=== PATIENT | male | born 1955 | race Caucasian/White ===

== ENCOUNTER 2016-03-31 12:59 | Emergency (ER) | payer OTHER ==
[2016-03-31 13:05] VITALS: BP 120/82; PULSE 84; TEMP 98; BMI 27.4
[2016-03-31] MEDS ORDERED: KETOROLAC TROMETHAMINE 60 MG/2 ML VIAL IM ONE (13:44)
[2016-03-31] MEDS ORDERED: KETOROLAC TROMETHAMINE 60 MG/2 ML VIAL ONE (13:54)
[2016-03-31 14:22] LABS: URINE APPEARANCE CLEAR; URINE BILIRUBIN NEGATIVE (NEGATIVE); URINE BLOOD NEGATIVE (NEGATIVE); URINE COLOR AMBER; URINE GLUCOSE (UA) NEGATIVE (NEGATIVE); URINE KETONE TRACE (NEGATIVE); URINE LEUK ESTERASE NEGATIVE (NEGATIVE); URINE NITRITE NEGATIVE (NEGATIVE); URINE PROTEIN 1+ (NEGATIVE); URINE UROBILINOGEN 4.0 E.U/dl E.U./dl (0.2-1.0)
[2016-03-31 14:29] LABS: URINE HYALINE CAST 1 /lpf; URINE MUCUS FEW; URINE RBC 1 /hpf (0-3); URINE WBC 14 /hpf (3-5)
--- NOTE | 2016-03-31 14:43 | PDOC ---
History of Present Illness - General Chief Complaint: Injury Stated Complaint: FALL, RT SIDE PAIN Time Seen by Provider: 03/31/16 13:30 History Source: Patient Exam Limitations: No Limitations - History of Present Illness Initial Comments: 03/31/16 14:38 CC pain to right ribs post fall x 4 days ago Occurred: reports: last week Severity: reports: mild Pain Location: reports: none Method of Injury: Yes: direct blow Modifying Factors: improves with: None Loss of Consciousness: no loss of consciousness Past History - Past Medical History Allergies/Adverse Reactions: Allergies Allergy/AdvReac Type Severity Reaction Status Date / Time No Known Allergies Allergy Verified 03/31/16 13:01 Home Medications: Ambulatory Orders NK [No Known Home Medication] 03/31/16 Other medical history: NONE - Psycho/Social/Smoking Cessation Hx Anxiety: No Suicidal Ideation: No Smoking History: Never smoked Have you smoked in the past 12 months: Yes Number of Cigarettes Smoked Daily: 2 Information on smoking cessation initiated: Yes Hx Alcohol Use: No Drug/Substance Use Hx: No Substance Use Type: None Review of Systems - Review of Systems Constitutional: No: Chills, Fever, Malaise HEENTM: No: Symptoms Reported Respiratory: Yes: Other. No: Symptoms reported, Cough, Shortness of Breath, SOB with Exertion, Productive cough, Hemoptysis Cardiac (ROS): No: Symptoms Reported Musculoskeletal: Yes: Back Pain, Muscle Pain Integumentary: Yes: Bruising Neurological: No: Symptoms reported *Physical Exam - Vital Signs Last Vital Signs Temp Pulse Resp BP Pulse Ox 98.0 F 84 18 120/82 100 03/31/16 13:02 03/31/16 13:02 03/31/16 13:02 03/31/16 13:02 03/31/16 13:02 - Physical Exam General Appearance: Yes: Appropriately Dressed. No: Apparent Distress HEENT: positive: TMs Normal, Pharynx Normal Neck: positive: Supple. negative: Tender, Rigid Respiratory/Chest: positive: Chest Tender, Lungs Clear, Normal Breath Sounds, Other (some guarding noted; bruising area lateral posterior #8,9). negative: Respiratory Distress, Accessory Muscle Use, Labored Respiration Cardiovascular: positive: Regular Rhythm, Regular Rate. negative: Murmur Gastrointestinal/Abdominal: positive: Normal Bowel Sounds, Soft. negative: Tender, Organomegaly ED Treatment Course - ADDITIONAL ORDERS Additional order review: Laboratory Results 03/31/16 14:00 Urine Color Rohini Urine Appearance Clear Urine pH 5.0 Ur Specific [place] 1.028 Urine Protein 1+ H Urine Glucose (UA) Negative Urine Ketones Trace H Urine Blood Negative Urine Nitrite Negative Urine Bilirubin Negative Urine Urobilinogen 4.0 e.u/dl Ur Leukocyte Esterase Negative Urine RBC 1 Urine WBC 14 Ur Epithelial Cells Rare Hyaline Casts 1 Urine Mucus Few - RADIOLOGY Radiology Studies Ordered: Category Date Time Status RIBS RIGHT SIDE [RAD] Stat Radiology 03/31/16 13:44 Completed - Medications Given in the ED: ED Medications Discontinued Medications Generic Name Dose Route Start Last Admin Trade Name Freq PRN Reason Stop Dose Admin Ketorolac Tromethamine 60 mg 03/31/16 13:44 03/31/16 14:03 Toradol Injection - IM 03/31/16 13:45 60 mg ONCE ONE Administration Medical Decision Making - Medical Decision Making 03/31/16 14:42 no fractures noted; no blood in urine; better post toradol *DC/Admit/Observation/Transfer Diagnosis at time of Disposition: Contusion of rib on right side Qualifiers: Encounter type: initial encounter Qualified Code(s): S20.211A - Contusion of right front wall of thorax, initial encounter - Discharge Dispostion Disposition: HOME Condition at time of disposition: Stable - Patient Instructions Additional Instructions: please see local MD next week if pain continues; advil for pain
== END 2016-03-31 14:47 | disposition home or self-care (01) ==
LOC: JERFT 12:59
DX: S20.211A Contusion of right front wall of thorax, initial encounter (principal); W19.XXXA Unspecified fall, initial encounter; Y93.89 Activity, other specified; Y92.9 Unspecified place or not applicable; Y99.8 Other external cause status
CPT/HCPCS: 71101-TC-RT; 81003; 81015; 99281-25

== ENCOUNTER 2019-03-21 12:41 | Inpatient (IN) | payer OTHER ==
[2019-03-21 13:59] VITALS: BMI 25.5
--- NOTE | 2019-03-21 16:16 | HP ---
CIWA Score Nausea/Vomitin-Mild Nausea/No Vomiting Muscle Tremors: 4-Moderate,w/Arms Extend Anxiety: 4-Mod. Anxious/Guarded Agitation: 4-Moderately Restless Paroxysmal Sweats: 1-Minimal Palms Moist Orientation: 0-Oriented Tacttile Disturbances: 0-None Auditory Disturbances: 0-None Visual Disturbances: 0-None Headache: 0-None Present CIWA-Ar Total Score: 14 - Admission Criteria OASAS Guidelines: Admission for Medically Managed Detox: Requires at least one of the followin. CIWA greater than 12 2. Seizures within the past 24 hours 3. Delirium tremens within the past 24 hours 4. Hallucinations within the past 24 hours 5. Acute intervention needed for co occurring medical disorder 6. Acute intervention needed for co occurring psychiatric disorder 7. Severe withdrawal that cannot be handled at a lower level of care (continued vomiting, continued diarrhea, abnormal vital signs) requiring intravenous medication and/or fluids 8. Admitting History and Physical - Admission Chief Complaint: "I need help" History of Present Illness: The patient is a 63 yo m w/ PMH HTN, HLD, Major depressive disorder, BPH who comes into [facility] for assistance with detoxification from alcohol. The patient endorses drinking 2-3 beers daily since he was 20. His last drink was yesterday. He denies blackouts or seizures from EOTH withdrawal in the past. The patient endorses sniffing 1 bag of cocaine daily since he was 32. His last use was 2 days ago. The patient is a current everyday smoker, smoking 7 cigarettes daily. PMH -HTN- Patient was previously on medication for this, but cannot recall the name. He has not taken these medications in the last 3 weeks -MDD- Patient was previously on medication for this, but cannot recall the name. He has not taken these medications in the last 3 weeks -BPH- Patient was previously on medication for this, but cannot recall the name. He has not taken these medications in the last 3 weeks History Source: Patient Limitations to Obtaining History: No Limitations - Past Medical History Cardiovascular: Yes: HTN, Hyperlipdemia Renal/: Yes: BPH - Past Surgical History Past Surgical History: Yes: None - Smoking History Smoking history: Never smoked Have you smoked in the past 12 months: Yes Aproximately how many cigarettes per day: 7 - Alcohol/Substance Use Hx Alcohol Use: No - Social History Usual Living Arrangement: Yes: Other (homeless) Admission ROS S - HPI Allergies/Adverse Reactions: Allergies Allergy/AdvReac Type Severity Reaction Status Date / Time No Known Allergies Allergy Verified 01/18/19 09:34 Exam Limitations: No Limitations - Ebola screening Have you traveled outside of the country in the last 21 days: No Have you had contact with anyone from an Ebola affected area: No Do you have a fever: No - Review of Systems Constitutional: Loss of Appetite EENT: reports: No Symptoms Reported Respiratory: reports: No Symptoms reported Cardiac: reports: No Symptoms Reported Neuro: reports: Tremors Psychiatric: reports: Judgement Intact, Mood/Affect Appropiate, Orientated x3 Patient History - Smoking Cessation Smoking history: Never smoked Have you smoked in the past 12 months: Yes Aproximately how many cigarettes per day: 2 Initiated information on smoking cessation: Yes 'Breaking Loose' booklet given: 03/21/19 - Substances abused Alcohol Substance route: Oral Frequency: Daily Amount used: 2-3 BEERS DAILY-16OZ Age of first use: 20 Date of last use: 03/20/19 Cocaine Substance route: Inhalation Frequency: Daily Amount used: 1 bag Age of first use: 32 Date of last use: 03/19/19 Admission Physical Exam S - Vital Signs Vital Signs: Vital Signs - 24 hr 03/21/19 13:54 Temperature 97.5 F L Pulse Rate 68 Respiratory 18 Rate Blood Pressure 143/78 - Physical General Appearance: Yes: Mild Distress, Irritable, Anxious HEENTM: Yes: EOMI, Normal ENT Inspection, KAVITA Respiratory: Yes: Chest Non-Tender, Lungs Clear, Normal Breath Sounds, No Respiratory Distress, No Accessory Muscle Use Cardiology: Yes: Regular Rhythm, Regular Rate, S1, S2. No: JVD, Murmur, Gallop/ S3, Gallop/S4 Abdominal: Yes: Normal Bowel Sounds, Non Tender, Flat, Soft Neurological: Yes: corrugator helper II-XII NML intact, Fully Oriented, Alert, Motor Strength 5/5, Normal Response, Depressed Affect Integumentary: Yes: Normal Color, Dry, Warm, Rash (maculopapular rash over both arms and chest.) - Diagnostic (1) Alcohol dependence Current Visit: Yes Status: Acute (2) Cocaine abuse Current Visit: Yes Status: Acute (3) Tobacco dependence Current Visit: Yes Status: Acute (4) Hypertension Current Visit: Yes Status: Acute (5) BPH (benign prostatic hyperplasia) Current Visit: Yes Status: Acute (6) Major depression Current Visit: Yes Status: Acute (7) Hyperlipidemia Current Visit: Yes Status: Acute Cleared for Admission [facility] - Detox or Rehab [facility] Level of Care: Medically Managed Detox Regimen/Protocol: Librium Breathalyzer - Breathalyzer Breathalyzer: 0 Urine Drug Screen - Test Device Lot number: [id number] Expiration date: 12/13/20 - Control Is test valid?: Yes - Results Drug screen NEGATIVE: No Urine drug screen results: TAMEKA-Cocaine Inpatient Rehab Admission - Rehab Decision to Admit Inpatient rehab admission?: No
--- NOTE | 2019-03-21 16:25 | PN ---
Teaching Attending Note Name of Resident: Guru Zhou ATTENDING PHYSICIAN STATEMENT I saw and evaluated the patient. I reviewed the resident's note and discussed the case with the resident. I agree with the resident's findings and plan as documented. SUBJECTIVE: 63 yo with long h/o AUD- tremulous/and anxious last drink yesterday. OBJECTIVE: Vital Signs - 24 hr 03/21/19 13:54 Temperature 97.5 F L Pulse Rate 68 Respiratory 18 Rate Blood Pressure 143/78 tremulous, anxious ASSESSMENT AND PLAN: AUD- admit for alcohol detox protocol
[2019-03-21] MEDS ORDERED: MENTHOL/PHENOL 1 EACH UD MM PRN (16:38)
[2019-03-21] MEDS ORDERED: hydrOXYzine PAMOATE 25 MG CAPSULE (FP) PO PRN (16:38)
[2019-03-21] MEDS ORDERED: METHOCARBAMOL 500 MG TABLET PO PRN (16:38)
[2019-03-21] MEDS ORDERED: MAGNESIUM HYDROX 2400MG/30ML ORAL SUSPENSION 30 ML CUP PO PRN (16:38)
[2019-03-21] MEDS ORDERED: ACETAMINOPHEN 325 MG TABLET (FP) PO PRN ×2 (16:38)
[2019-03-21] MEDS ORDERED: BISMUTH SUBSALICYLATE 524 MG/30 ML UD PO PRN (16:38)
[2019-03-21] MEDS ORDERED: MAGNESIUM CITRATE 300 ML BOTTLE PO PRN (16:38)
[2019-03-21] MEDS ORDERED: chlordiazePOXIDE HCL 25 MG CAPSULE PO PRN (16:38)
[2019-03-21] MEDS ORDERED: IBUPROFEN 400 MG TABLET (FP) PO PRN (16:38)
[2019-03-21] MEDS ORDERED: MAG HYDROX/AL HYDROX/SIMETH 30 ML UNIT-DOSE CUP PO PRN (16:38)
[2019-03-21] MEDS: chlordiazePOXIDE HCL 25 MG CAPSULE PO SCH ×2 (19:12→22:19)
[2019-03-21] MEDS: THIAMINE HCL 100 MG TABLET (FP) PO SCH (22:19)
[2019-03-22] MEDS: chlordiazePOXIDE HCL 25 MG CAPSULE PO SCH ×4 (06:02→22:08)
--- NOTE | 2019-03-22 09:25 | PN ---
S CIWA - CIWA Score Nausea/Vomitin-Mild Nausea/No Vomiting Muscle Tremors: 3 Anxiety: 3 Agitation: 2 Paroxysmal Sweats: 2 Orientation: 1-Uncertain about Date Tacttile Disturbances: 0-None Auditory Disturbances: 0-None Visual Disturbances: 0-None Headache: 0-None Present CIWA-Ar Total Score: 12 S Progress Note (SOAP) Subjective: 63 years old male admitted on 03/21/19 for alcohol withdrawal sx management treating with librium detox regimen ate breakfast feeling tired resting in bed discussed behavior therapy and psychosocial therapy as part of recovery Objective: 03/22/19 09:26 Vital Signs Temperature 98.2 F 03/22/19 09:03 Pulse Rate 61 03/22/19 09:03 Respiratory Rate 18 03/22/19 09:03 Blood Pressure 141/76 03/22/19 09:03 O2 Sat by Pulse Oximetry (%) 03/22/19 09:27 lab pending 03/22/19 09:28 bp elevation when detoxing fro alcohol clonidine 0.1 mg po prn Assessment: 03/22/19 09:29 alcohol withdrawal Plan: librium regimen
[2019-03-22] MEDS ORDERED: cloNIDine HCL 0.1 MG TABLET PO PRN (09:27)
[2019-03-22 09:44] LABS: HEMATOCRIT 40.8 % (35.4-49); HEMOGLOBIN 13.7 GM/dL (11.7-16.9); MCH 31.7 pg (25.7-33.7); MCHC 33.7 g/dl (32.0-35.9); MEAN CELL VOLUME 93.9 fl (80-96); MEAN PLT VOLUME 8.9 fl (7.5-11.1); PLATELET COUNT 227 K/MM3 (134-434); RBC 4.34 M/mm3 (4.00-5.60); RDW 13.7 % (11.9-15.9); WHITE BLOOD COUNT 5.1 K/mm3 (4.0-10.0)
[2019-03-22] MEDS: PRENATAL VITAMINS W/ FOLIC ACID TABLET (FP) PO SCH (10:18)
[2019-03-22] MEDS: NICOTINE 14 MG/24 HOURS TOPICAL PATCH TD SCH (10:19)
[2019-03-22 11:07] LABS: ALBUMIN 3.1 g/dl (3.4-5.0); BILIRUBIN,TOTAL 0.2 mg/dL (0.2-1); BLOOD UREA NITROGEN 17.6 mg/dL (7-18); CALCIUM 8.4 mg/dL (8.5-10.1); POTASSIUM 3.7 mmol/L (3.5-5.1); TOT PROT 6.2 g/dl (6.4-8.2)
--- NOTE | 2019-03-22 12:48 | CONSULT ---
[facility] Psychiatric Consult - Data Date of interview: 03/22/19 Admission source: [facility] Identifying data: First visit and admission to [facility] for this 63 y/o male self-referred for detoxification treatment. [place] issues : alcohol, cocaine. Patient is , a father of five, homeless, unemployed and supported on food stamps. Substance Abuse History: Discussed with the patient in this session. Details are concordant with current [facility] report as follows : Smoking history: Never smoked. Have you smoked in the past 12 months: Yes. Aproximately how many cigarettes per day: 2. Initiated information on smoking cessation: Yes. ' Breaking Loose' booklet given: 03/21/19. - Substances abused. Alcohol. Substance route: Oral. Frequency: Daily. Amount used: 2-3 BEERS DAILY-16OZ. Age of first use: 20. Date of last use: 03/20/19. Cocaine. Substance route : Inhalation. Frequency: Daily. Amount used: 1 bag. Age of first use: 32. Date of last use: 03/19/19 Medical History: Medical profile is remarkable for hypertension, dyslipidemia and benign prostatic hyperplasia (BPH). No known allergies. Psychiatric History: Patient denies history of psychiatric hospitalizations. Mr Sly states that he used to be on medications for depression. No current connection with psychiatric OPD care providers. Patient has no recollection of the names of his previous medications or locations of OPD clinics. Has not taken psychotropic medications " for a while ". Patient denies history of suicide attempts. Physical/Sexual Abuse/Trauma History: Patient denies. Additional Comment: Urine drug screen results: TAMEKA-Cocaine. Noted. Mental Status Exam - Mental Status Exam Alert and Oriented to: Time, Place, Person Cognitive Function: Grossly Intact Patient Appearance: Unkempt, Disheveled Mood: Nervous, Withdrawn Affect: Mood Congruent, Constricted Patient Behavior: Fatigued, Cooperative Speech Pattern: Clear, Appropriate Voice Loudness: Normal Thought Process: Goal Oriented Thought Disorder: Not Present Hallucinations: Denies Suicidal Ideation: Denies Homicidal Ideation: Denies Insight/Judgement: Poor Sleep: Well Appetite: Good Gait/Station: Other (not observed; not out of bed for interview) Psychiatric Findings - Problem List ([place] 1, 2,3) (1) Alcohol dependence Current Visit: Yes Status: Chronic (2) Cocaine abuse Current Visit: Yes Status: Chronic (3) Nicotine abuse Current Visit: Yes Status: Chronic (4) History of depression Current Visit: Yes Status: Chronic Comment: Non-compliant with OPD care. - Initial Treatment Plan Initial Treatment Plan: Psychoeducation. Sleep hygiene. Detoxification. Support. AA meetings. MAT services offered to patient : responded with ambivalence. Observation.
[2019-03-22] MEDS: THIAMINE HCL 100 MG TABLET (FP) PO SCH (22:08)
[2019-03-22] MEDS: MELATONIN 5 MG TABLETS PO PRN (22:10)
[2019-03-23] MEDS: chlordiazePOXIDE HCL 25 MG CAPSULE PO SCH ×4 (06:24→22:37)
--- NOTE | 2019-03-23 09:15 | PN ---
[facility] CIWA - CIWA Score Nausea/Vomitin-Mild Nausea/No Vomiting Muscle Tremors: 3 Anxiety: 3 Agitation: 1-Slight > Activity Paroxysmal Sweats: 2 Orientation: 0-Oriented Tacttile Disturbances: 0-None Auditory Disturbances: 0-None Visual Disturbances: 0-None Headache: 0-None Present CIWA-Ar Total Score: 10 S Progress Note (SOAP) Subjective: 63 years old male admitted on 03/21/19 for alcohol withdrawal sx management treating with librium detox regimen feeling tired prefers to stay in bed encourage to attend detox groups and meeting as part of recovery Objective: 03/23/19 09:14 Vital Signs Temperature 98.2 F 03/23/19 09:07 Pulse Rate 69 03/23/19 09:07 Respiratory Rate 18 03/23/19 09:07 Blood Pressure 141/84 03/23/19 09:07 O2 Sat by Pulse Oximetry (%) Laboratory Last Values WBC 5.1 K/mm3 (4.0-10.0) 03/22/19 08:00 RBC 4.34 M/mm3 (4.00-5.60) 03/22/19 08:00 Hgb 13.7 GM/dL (11.7-16.9) 03/22/19 08:00 Hct 40.8 % (35.4-49) 03/22/19 08:00 MCV 93.9 fl (80-96) 03/22/19 08:00 MCH 31.7 pg (25.7-33.7) 03/22/19 08:00 MCHC 33.7 g/dl (32.0-35.9) 03/22/19 08:00 RDW 13.7 % (11.9-15.9) 03/22/19 08:00 Plt Count 227 K/MM3 (134-434) 03/22/19 08:00 MPV 8.9 fl (7.5-11.1) 03/22/19 08:00 Sodium 144 mmol/L (136-145) 03/22/19 08:00 Potassium 3.7 mmol/L (3.5-5.1) 03/22/19 08:00 Chloride 111 mmol/L (98-107) H 03/22/19 08:00 Carbon Dioxide 26 mmol/L (21-32) 03/22/19 08:00 Anion Gap 7 MMOL/L (8-16) L 03/22/19 08:00 BUN 17.6 mg/dL (7-18) 03/22/19 08:00 Creatinine 1.0 mg/dL (0.55-1.3) 03/22/19 08:00 Est GFR (CKD-EPI)AfAm 93.73 03/22/19 08:00 Est GFR (CKD-EPI)NonAf 80.87 03/22/19 08:00 Random Glucose 95 mg/dL (74-106) 03/22/19 08:00 Calcium 8.4 mg/dL (8.5-10.1) L 03/22/19 08:00 Total Bilirubin 0.2 mg/dL (0.2-1) 03/22/19 08:00 AST 11 U/L (15-37) L 03/22/19 08:00 ALT 15 U/L (13-61) 03/22/19 08:00 Alkaline Phosphatase 71 U/L (45-117) 03/22/19 08:00 Total Protein 6.2 g/dl (6.4-8.2) L 03/22/19 08:00 Albumin 3.1 g/dl (3.4-5.0) L 03/22/19 08:00 RPR Titer Nonreactive (NONREACTIVE) 03/22/19 08:00 lab noted Assessment: 03/23/19 09:15 alcohol withdrawal Plan: librium regimen
[2019-03-23] MEDS: PRENATAL VITAMINS W/ FOLIC ACID TABLET (FP) PO SCH (10:12)
[2019-03-23] MEDS: NICOTINE 14 MG/24 HOURS TOPICAL PATCH TD SCH (10:12)
[2019-03-23] MEDS: THIAMINE HCL 100 MG TABLET (FP) PO SCH (22:37)
[2019-03-23] MEDS: MELATONIN 5 MG TABLETS PO PRN (22:37)
[2019-03-24] MEDS ORDERED: chlordiazePOXIDE HCL 10 MG CAPSULE PO PRN
[2019-03-24] MEDS: chlordiazePOXIDE HCL 10 MG CAPSULE PO SCH ×4 (05:51→22:16)
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
--- NOTE | 2019-03-24 09:58 | PN ---
S CIWA - CIWA Score Nausea/Vomitin-No Nausea/No Vomiting Muscle Tremors: 1-None Visible, but [place] Anxiety: 2 Agitation: 1-Slight > Activity Paroxysmal Sweats: 1-Minimal Palms Moist Orientation: 0-Oriented Tacttile Disturbances: 0-None Auditory Disturbances: 0-None Visual Disturbances: 0-None Headache: 0-None Present CIWA-Ar Total Score: 5 [facility] Progress Note (SOAP) Subjective: 63 years old male admitted on 03/21/19 for alcohol withdrawal sx management treating with librium detox regimen reports self harm ideation and harm others states that history of self harm last self harm ideation was "yesterday" patient is pointing out old healed scars vertical both inner fore arms and based of neck psychiatric referral and 1:1 initiated met with the patient and mental health provider patient denies self harm or harm others ideation but "I want to get better" discontinue 1:1 continue behavior change observation Objective: 03/24/19 09:58 Vital Signs Temperature 96.3 F L 03/24/19 09:22 Pulse Rate 80 03/24/19 09:22 Respiratory Rate 18 03/24/19 09:22 Blood Pressure 128/85 03/24/19 09:22 O2 Sat by Pulse Oximetry (%) Laboratory Last Values WBC 5.1 K/mm3 (4.0-10.0) 03/22/19 08:00 RBC 4.34 M/mm3 (4.00-5.60) 03/22/19 08:00 Hgb 13.7 GM/dL (11.7-16.9) 03/22/19 08:00 Hct 40.8 % (35.4-49) 03/22/19 08:00 MCV 93.9 fl (80-96) 03/22/19 08:00 MCH 31.7 pg (25.7-33.7) 03/22/19 08:00 MCHC 33.7 g/dl (32.0-35.9) 03/22/19 08:00 RDW 13.7 % (11.9-15.9) 03/22/19 08:00 Plt Count 227 K/MM3 (134-434) 03/22/19 08:00 MPV 8.9 fl (7.5-11.1) 03/22/19 08:00 Sodium 144 mmol/L (136-145) 03/22/19 08:00 Potassium 3.7 mmol/L (3.5-5.1) 03/22/19 08:00 Chloride 111 mmol/L (98-107) H 03/22/19 08:00 Carbon Dioxide 26 mmol/L (21-32) 03/22/19 08:00 Anion Gap 7 MMOL/L (8-16) L 03/22/19 08:00 BUN 17.6 mg/dL (7-18) 03/22/19 08:00 Creatinine 1.0 mg/dL (0.55-1.3) 03/22/19 08:00 Est GFR (CKD-EPI)AfAm 93.73 03/22/19 08:00 Est GFR (CKD-EPI)NonAf 80.87 03/22/19 08:00 Random Glucose 95 mg/dL (74-106) 03/22/19 08:00 Calcium 8.4 mg/dL (8.5-10.1) L 03/22/19 08:00 Total Bilirubin 0.2 mg/dL (0.2-1) 03/22/19 08:00 AST 11 U/L (15-37) L 03/22/19 08:00 ALT 15 U/L (13-61) 03/22/19 08:00 Alkaline Phosphatase 71 U/L (45-117) 03/22/19 08:00 Total Protein 6.2 g/dl (6.4-8.2) L 03/22/19 08:00 Albumin 3.1 g/dl (3.4-5.0) L 03/22/19 08:00 RPR Titer Nonreactive (NONREACTIVE) 03/22/19 08:00 lab noted Assessment: 03/24/19 09:58 alcohol withdrawal Plan: librium regimen
[2019-03-24] MEDS: PRENATAL VITAMINS W/ FOLIC ACID TABLET (FP) PO SCH (10:12)
[2019-03-24] MEDS: NICOTINE 14 MG/24 HOURS TOPICAL PATCH TD SCH (10:13)
[2019-03-24] MEDS: THIAMINE HCL 100 MG TABLET (FP) PO SCH (22:16)
[2019-03-24] MEDS: MELATONIN 5 MG TABLETS PO PRN (22:17)
[2019-03-25] MEDS: chlordiazePOXIDE HCL 10 MG CAPSULE PO SCH ×2 (07:49→17:32)
--- NOTE | 2019-03-25 10:02 | PN ---
[facility] CIWA - CIWA Score Nausea/Vomitin-Mild Nausea/No Vomiting Muscle Tremors: 2 Anxiety: 1-Mildly Anxious Agitation: 1-Slight > Activity Paroxysmal Sweats: No Perspiration Orientation: 0-Oriented Tacttile Disturbances: 0-None Auditory Disturbances: 0-None Visual Disturbances: 0-None Headache: 1-Very Mild CIWA-Ar Total Score: 6 [facility] Progress Note (SOAP) Subjective: pt here for alcohol and cocaine detox. Pt states feeling fine O: Vital Signs - 24 hr 03/24/19 03/24/19 03/24/19 13:14 17:45 22:32 Temperature 96.8 F L 97 F L 9714 F H Pulse Rate 73 86 84 Respiratory 18 18 18 Rate Blood Pressure 135/82 126/77 130/84 03/25/19 03/25/19 03/25/19 00:25 03:30 05:49 Temperature 97.6 F Pulse Rate 61 Respiratory 18 18 18 Rate Blood Pressure 108/62 03/25/19 09:11 Temperature 98.3 F Pulse Rate 68 Respiratory 18 Rate Blood Pressure 119/69 Laboratory Tests 03/22/19 03/22/19 03/22/19 08:00 08:00 08:00 WBC 5.1 RBC 4.34 Hgb 13.7 Hct 40.8 MCV 93.9 MCH 31.7 MCHC 33.7 RDW 13.7 Plt Count 227 MPV 8.9 Sodium 144 Potassium 3.7 Chloride 111 H Carbon Dioxide 26 Anion Gap 7 L BUN 17.6 Creatinine 1.0 Est GFR (CKD-EPI)AfAm 93.73 Est GFR (CKD-EPI)NonAf 80.87 Random Glucose 95 Calcium 8.4 L Total Bilirubin 0.2 AST 11 L ALT 15 Alkaline Phosphatase 71 Total Protein 6.2 L Albumin 3.1 L RPR Titer Nonreactive Hep C Ab Diagnostic HIV 1&2 Ag/Ab, 4th Gen 03/23/19 03/23/19 08:00 08:00 WBC RBC Hgb Hct MCV MCH MCHC RDW Plt Count MPV Sodium Potassium Chloride Carbon Dioxide Anion Gap BUN Creatinine Est GFR (CKD-EPI)AfAm Est GFR (CKD-EPI)NonAf Random Glucose Calcium Total Bilirubin AST ALT Alkaline Phosphatase Total Protein Albumin RPR Titer Hep C Ab Diagnostic 0.2 HIV 1&2 Ag/Ab, 4th Gen Non reactive nl VS and labs a/p AUD- continue detox protocol
[2019-03-25] MEDS: PRENATAL VITAMINS W/ FOLIC ACID TABLET (FP) PO SCH (10:16)
[2019-03-25] MEDS: NICOTINE 14 MG/24 HOURS TOPICAL PATCH TD SCH (10:16)
[2019-03-25] MEDS: MELATONIN 5 MG TABLETS PO PRN (22:15)
[2019-03-25] MEDS: THIAMINE HCL 100 MG TABLET (FP) PO SCH (22:15)
[2019-03-26] MEDS ORDERED: chlordiazePOXIDE HCL 10 MG CAPSULE PO ONE (05:00)
[2019-03-26 09:50] VITALS: BP 102/82; PULSE 72; TEMP 98.7
[2019-03-26] MEDS: NICOTINE 14 MG/24 HOURS TOPICAL PATCH TD SCH (10:32)
[2019-03-26] MEDS: PRENATAL VITAMINS W/ FOLIC ACID TABLET (FP) PO SCH (10:32)
--- NOTE | 2019-03-26 12:33 | DS ---
[facility] Detox Discharge Summary Admission Date: 03/21/19 Discharge Date: 03/26/19 - History Present History: Alcohol Dependence, Cocaine Dependence Additional Comments: Pt is medically cleared and [facility]. Pt completed the detox protocol. Pt is encouraged to follow through with the rehab protocol. Pt verabalized understanding. Pt is alert and oriented x3 and in no respiratory distress. Pertinent Past History: h/o HTN, HLD, BPH, alcohol, and cocaine use disorder. - Physical Exam Results Vital Signs: Vital Signs Temperature 98.7 F 03/26/19 09:25 Pulse Rate 72 03/26/19 09:25 Respiratory Rate 18 03/26/19 09:25 Blood Pressure 102/82 03/26/19 09:25 O2 Sat by Pulse Oximetry (%) Vital Signs 03/26/19 03/26/19 06:36 09:25 Temperature 97.0 F L 98.7 F Pulse Rate 76 72 Respiratory 18 18 Rate Blood Pressure 111/62 102/82 Laboratory Last Values WBC 5.1 K/mm3 (4.0-10.0) 03/22/19 08:00 RBC 4.34 M/mm3 (4.00-5.60) 03/22/19 08:00 Hgb 13.7 GM/dL (11.7-16.9) 03/22/19 08:00 Hct 40.8 % (35.4-49) 03/22/19 08:00 MCV 93.9 fl (80-96) 03/22/19 08:00 MCH 31.7 pg (25.7-33.7) 03/22/19 08:00 MCHC 33.7 g/dl (32.0-35.9) 03/22/19 08:00 RDW 13.7 % (11.9-15.9) 03/22/19 08:00 Plt Count 227 K/MM3 (134-434) 03/22/19 08:00 MPV 8.9 fl (7.5-11.1) 03/22/19 08:00 Sodium 144 mmol/L (136-145) 03/22/19 08:00 Potassium 3.7 mmol/L (3.5-5.1) 03/22/19 08:00 Chloride 111 mmol/L (98-107) H 03/22/19 08:00 Carbon Dioxide 26 mmol/L (21-32) 03/22/19 08:00 Anion Gap 7 MMOL/L (8-16) L 03/22/19 08:00 BUN 17.6 mg/dL (7-18) 03/22/19 08:00 Creatinine 1.0 mg/dL (0.55-1.3) 03/22/19 08:00 Est GFR (CKD-EPI)AfAm 93.73 03/22/19 08:00 Est GFR (CKD-EPI)NonAf 80.87 03/22/19 08:00 Random Glucose 95 mg/dL (74-106) 03/22/19 08:00 Calcium 8.4 mg/dL (8.5-10.1) L 03/22/19 08:00 Total Bilirubin 0.2 mg/dL (0.2-1) 03/22/19 08:00 AST 11 U/L (15-37) L 03/22/19 08:00 ALT 15 U/L (13-61) 03/22/19 08:00 Alkaline Phosphatase 71 U/L (45-117) 03/22/19 08:00 Total Protein 6.2 g/dl (6.4-8.2) L 03/22/19 08:00 Albumin 3.1 g/dl (3.4-5.0) L 03/22/19 08:00 RPR Titer Nonreactive (NONREACTIVE) 03/22/19 08:00 Hep C Ab Diagnostic 0.2 s/co ratio (0.0-0.9) 03/23/19 08:00 HIV 1&2 Ag/Ab, 4th Gen Non reactive (Non Reactive) 03/23/19 08:00 Labs noted. Pertinent Admission Physical Exam Findings: withdrawal symptoms. - Treatment Hospital Course: Detox Protocol Followed, Detoxed Safely, Responded well, Discharged Condition Good, Rehab Referral Accepted Patient has Accepted a Rehab Referral to: [facility] - Medication Discharge Medications: Ambulatory Orders NK [No Known Home Medication] 01/18/19 - Diagnosis (1) BPH (benign prostatic hyperplasia) Status: Acute (2) Hyperlipidemia Status: Acute (3) Hypertension Status: Acute (4) Tobacco dependence Status: Acute (5) Alcohol dependence Status: Chronic (6) Cocaine abuse Status: Chronic (7) Nicotine abuse Status: Chronic - AMA Did Patient Leave Against Medical Advice: No
== END 2019-03-26 13:44 | disposition other institution (70) | DRG 774 ==
LOC: YASAS 12:41 → Y3N 17:13
PROVIDERS: ADMIT Allergy & Immunology; ATTEND Allergy & Immunology
PROC: HZ2ZZZZ Detoxification Services for Substance Abuse Treatment (ICD-10-PCS; principal; 2019-03-21)
DX: F10.230 Alcohol dependence with withdrawal, uncomplicated (principal); F14.20 Cocaine dependence, uncomplicated; F17.210 Nicotine dependence, cigarettes, uncomplicated; F10.24 Alcohol dependence with alcohol-induced mood disorder; F32.9 Major depressive disorder, single episode, unspecified; I10 Essential (primary) hypertension; E78.5 Hyperlipidemia, unspecified; N40.0 Benign prostatic hyperplasia without lower urinary tract symptoms; Z91.5 Personal history of self-harm
CPT/HCPCS: 36415; 80053; 85027; 86593; 86803; 87389

== ENCOUNTER 2019-03-26 12:57 | Inpatient (IN) | payer OTHER ==
[2019-03-26] MEDS ORDERED: guaiFENesin 200 MG/10 ML 10 ML UNIT-DOSE CUPS PO PRN (14:19)
[2019-03-26] MEDS ORDERED: MENTHOL/PHENOL 1 EACH UD MM PRN (14:19)
[2019-03-26] MEDS ORDERED: P-EPHED 60MG/TRIPROLIDI 2.5MG TABLET PO PRN (14:19)
[2019-03-26] MEDS ORDERED: MAGNESIUM HYDROX 2400MG/30ML ORAL SUSPENSION 30 ML CUP PO PRN (14:19)
[2019-03-26] MEDS ORDERED: ACETAMINOPHEN 325 MG TABLET (FP) PO PRN (14:19)
[2019-03-26] MEDS ORDERED: IBUPROFEN 400 MG TABLET (FP) PO PRN (14:19)
[2019-03-26] MEDS ORDERED: MAG HYDROX/AL HYDROX/SIMETH 30 ML UNIT-DOSE CUP PO PRN (14:19)
[2019-03-26] MEDS ORDERED: hydrOXYzine PAMOATE 25 MG CAPSULE (FP) PO PRN (14:19)
[2019-03-26] MEDS ORDERED: LOPERAMIDE HCL 2 MG CAPSULE PO PRN (14:19)
--- NOTE | 2019-03-26 14:19 | HP ---
[facility] Rehab Assess/Revision - Admission History Admitted to Rehab from: [facility] Date of Admission to Rehab: 03/26/2019 - Vital signs Vital Signs: stable. - Findings Detox History & Physical reviewed: Yes Concur with findings: Yes Inpatient Rehab Admission - Rehab Decision to Admit Inpatient rehab admission?: Yes - Initial Determination Are CD services needed?: Yes Free of communicable disease: Yes Not in need of hospitalization: Yes - Rehab Admission Criteria Previous failed treatment: Yes Poor recovery environment: Yes Comorbidities: Yes Lacks judgement: Yes Patient is meeting Inpatient Rehab admission criteria:: Yes
[2019-03-26] MEDS: MELATONIN 5 MG TABLETS PO PRN (22:04)
[2019-03-26] MEDS: THIAMINE HCL 100 MG TABLET (FP) PO SCH (22:04)
[2019-03-27] MEDS: NICOTINE 14 MG/24 HOURS TOPICAL PATCH TD SCH (10:24)
[2019-03-27] MEDS: PRENATAL VITAMINS W/ FOLIC ACID TABLET (FP) PO SCH (10:24)
[2019-03-27] MEDS: THIAMINE HCL 100 MG TABLET (FP) PO SCH (21:52)
[2019-03-27] MEDS: MELATONIN 5 MG TABLETS PO PRN (21:52)
[2019-03-28] MEDS: NICOTINE 14 MG/24 HOURS TOPICAL PATCH TD SCH (11:29)
[2019-03-28] MEDS: PRENATAL VITAMINS W/ FOLIC ACID TABLET (FP) PO SCH (11:29)
[2019-03-28] MEDS: THIAMINE HCL 100 MG TABLET (FP) PO SCH (21:52)
[2019-03-28] MEDS: MELATONIN 5 MG TABLETS PO PRN (21:53)
[2019-03-29] MEDS ORDERED: diphenhydrAMINE HCL 25 MG CAPSULE (FP) PO ONE ×2 (01:56→02:15)
[2019-03-29] MEDS ORDERED: CALAMINE 8% TOPICAL LOTION 177 ML BOTTLE TP PRN (01:57)
--- NOTE | 2019-03-29 02:10 | PN ---
[facility] Progress Note Note: Patient reports allergic reaction with generalized itching and skin redness noted and reported. He reports that it started after his beddings were changed this evening. He denies any oral intake. Vital Signs Temperature 97.3 F L 03/29/19 02:06 Pulse Rate 68 03/29/19 02:06 Respiratory Rate 20 03/29/19 02:06 Blood Pressure 139/85 03/29/19 02:06 O2 Sat by Pulse Oximetry (%) Action: Benadryl 50mg tablet oral ordered Calamine lotion 8% topical BID prn ordered
[2019-03-29] MEDS: PRENATAL VITAMINS W/ FOLIC ACID TABLET (FP) PO SCH (10:41)
[2019-03-29] MEDS: NICOTINE 14 MG/24 HOURS TOPICAL PATCH TD SCH (10:42)
--- NOTE | 2019-03-29 15:06 | PN ---
[facility] Progress Note Note: Pt is a 63 y/o male with a hx of [place]-alcohol,cocaine admitted to rehab after detox on [facility] on 03/25/19 . Pt reports he has a PCP Dr. Barajas on @ [address] [place] [address]. PMHx of HTN(no meds), HLD(no med),BPH(no med). Psych Hx of MDD (no med). Pt requesting to see the psych to express what will help him to not relapse. States skin itch has resolved from last night symptoms. Vital Signs - 24 hr 03/29/19 03/29/19 03/29/19 00:30 02:06 03:30 Temperature 97.3 F L Pulse Rate 68 Respiratory 18 20 18 Rate Blood Pressure 139/85 03/29/19 06:57 Temperature Pulse Rate Respiratory 18 Rate Blood Pressure alert o x 3 nad oob ambulating with steady gait extremities/skin:no edema;no redness or swelling, skin intact. A/P s/p detox new rehab pt Maintain safety follow up with psych consult increase po fluids.
[2019-03-29] MEDS: MELATONIN 5 MG TABLETS PO PRN (22:18)
[2019-03-29] MEDS: THIAMINE HCL 100 MG TABLET (FP) PO SCH (22:18)
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
[2019-03-30] MEDS: PRENATAL VITAMINS W/ FOLIC ACID TABLET (FP) PO SCH (11:19)
[2019-03-30] MEDS: NICOTINE 14 MG/24 HOURS TOPICAL PATCH TD SCH (11:20)
[2019-03-30] MEDS: THIAMINE HCL 100 MG TABLET (FP) PO SCH (21:57)
[2019-03-30] MEDS: MELATONIN 5 MG TABLETS PO PRN (21:57)
[2019-03-31] MEDS: NICOTINE 14 MG/24 HOURS TOPICAL PATCH TD SCH (10:09)
[2019-03-31] MEDS: PRENATAL VITAMINS W/ FOLIC ACID TABLET (FP) PO SCH (10:09)
--- NOTE | 2019-03-31 13:16 | PN ---
[facility] Progress Note Note: Pt brought in Discharge Medical papers from [facility] dated admission-01/21/2019 and Discharge -02/04/2019. Pt was on Amlodipine 5 mg po daily given #30, Atorvastatin 10 mg po at bed time given #30; Revia 50 mg po at bedtime given #30. Pt is requesting to restart these medications. Vital Signs - 24 hr 03/31/19 03/31/19 03/31/19 00:30 03:30 07:15 Temperature 97.8 F Pulse Rate 74 Respiratory 18 18 18 Rate Blood Pressure 136/79 Alert o x 3 nad oob ambulating with steady gait. A/P rehab pt [place] Maintain safety Reorder pt's meds as directed.
[2019-03-31] MEDS: NALTREXONE HCL 50 MG TABLET PO SCH (21:47)
[2019-03-31] MEDS: MELATONIN 5 MG TABLETS PO PRN (21:47)
[2019-03-31] MEDS: ATORVASTATIN CA 10 MG TABLET (FP) PO SCH (21:47)
[2019-03-31] MEDS: THIAMINE HCL 100 MG TABLET (FP) PO SCH (21:47)
[2019-04-01] MEDS: PRENATAL VITAMINS W/ FOLIC ACID TABLET (FP) PO SCH (09:36)
[2019-04-01] MEDS: NICOTINE 14 MG/24 HOURS TOPICAL PATCH TD SCH (09:37)
[2019-04-01] MEDS: amLODIPine BESYLATE 5 MG TABLET (FP) PO SCH (09:37)
[2019-04-01] MEDS: THIAMINE HCL 100 MG TABLET (FP) PO SCH (21:39)
[2019-04-01] MEDS: ATORVASTATIN CA 10 MG TABLET (FP) PO SCH (21:39)
[2019-04-01] MEDS: MELATONIN 5 MG TABLETS PO PRN (21:40)
[2019-04-01] MEDS: NALTREXONE HCL 50 MG TABLET PO SCH (22:11)
[2019-04-02] MEDS: NICOTINE 14 MG/24 HOURS TOPICAL PATCH TD SCH (10:16)
[2019-04-02] MEDS: amLODIPine BESYLATE 5 MG TABLET (FP) PO SCH (10:16)
[2019-04-02] MEDS: PRENATAL VITAMINS W/ FOLIC ACID TABLET (FP) PO SCH (10:16)
[2019-04-02] MEDS: THIAMINE HCL 100 MG TABLET (FP) PO SCH (21:39)
[2019-04-02] MEDS: ATORVASTATIN CA 10 MG TABLET (FP) PO SCH (21:39)
[2019-04-02] MEDS: NALTREXONE HCL 50 MG TABLET PO SCH (21:39)
[2019-04-02] MEDS: MELATONIN 5 MG TABLETS PO PRN (21:40)
[2019-04-03] MEDS: NICOTINE 14 MG/24 HOURS TOPICAL PATCH TD SCH (10:21)
[2019-04-03] MEDS: amLODIPine BESYLATE 5 MG TABLET (FP) PO SCH (10:21)
[2019-04-03] MEDS: PRENATAL VITAMINS W/ FOLIC ACID TABLET (FP) PO SCH (10:21)
[2019-04-03] MEDS: ATORVASTATIN CA 10 MG TABLET (FP) PO SCH (21:57)
[2019-04-03] MEDS: MELATONIN 5 MG TABLETS PO PRN (21:57)
[2019-04-03] MEDS: NALTREXONE HCL 50 MG TABLET PO SCH (21:57)
[2019-04-03] MEDS: THIAMINE HCL 100 MG TABLET (FP) PO SCH (21:57)
[2019-04-04] MEDS: PRENATAL VITAMINS W/ FOLIC ACID TABLET (FP) PO SCH (10:05)
[2019-04-04] MEDS: NICOTINE 14 MG/24 HOURS TOPICAL PATCH TD SCH (10:05)
[2019-04-04] MEDS: amLODIPine BESYLATE 5 MG TABLET (FP) PO SCH (10:59)
[2019-04-04] MEDS: NICOTINE 21 MG/24 HOURS TOPICAL PATCH TD SCH (12:59)
[2019-04-04] MEDS: NALTREXONE HCL 50 MG TABLET PO SCH (21:38)
[2019-04-04] MEDS: ATORVASTATIN CA 10 MG TABLET (FP) PO SCH (21:38)
[2019-04-04] MEDS: THIAMINE HCL 100 MG TABLET (FP) PO SCH (21:39)
[2019-04-04] MEDS: MELATONIN 5 MG TABLETS PO PRN (21:39)
[2019-04-05] MEDS: amLODIPine BESYLATE 5 MG TABLET (FP) PO SCH (11:04)
[2019-04-05] MEDS: PRENATAL VITAMINS W/ FOLIC ACID TABLET (FP) PO SCH (11:04)
[2019-04-05] MEDS: NICOTINE 21 MG/24 HOURS TOPICAL PATCH TD SCH (11:06)
[2019-04-05] MEDS: THIAMINE HCL 100 MG TABLET (FP) PO SCH (21:47)
[2019-04-05] MEDS: MELATONIN 5 MG TABLETS PO PRN (21:47)
[2019-04-05] MEDS: ATORVASTATIN CA 10 MG TABLET (FP) PO SCH (21:47)
[2019-04-05] MEDS: NALTREXONE HCL 50 MG TABLET PO SCH (21:48)
[2019-04-06] MEDS: amLODIPine BESYLATE 5 MG TABLET (FP) PO SCH (10:42)
[2019-04-06] MEDS: PRENATAL VITAMINS W/ FOLIC ACID TABLET (FP) PO SCH (10:42)
[2019-04-06] MEDS: NICOTINE 21 MG/24 HOURS TOPICAL PATCH TD SCH (10:43)
[2019-04-06] MEDS: ATORVASTATIN CA 10 MG TABLET (FP) PO SCH (21:50)
[2019-04-06] MEDS: NALTREXONE HCL 50 MG TABLET PO SCH (21:50)
[2019-04-06] MEDS: THIAMINE HCL 100 MG TABLET (FP) PO SCH (21:50)
[2019-04-07] MEDS: PRENATAL VITAMINS W/ FOLIC ACID TABLET (FP) PO SCH (10:43)
[2019-04-07] MEDS: NICOTINE 21 MG/24 HOURS TOPICAL PATCH TD SCH (10:43)
[2019-04-07] MEDS: amLODIPine BESYLATE 5 MG TABLET (FP) PO SCH (10:43)
--- NOTE | 2019-04-07 15:03 | DS ---
[facility] Rehab Discharge Summary - [facility] Rehab Discharge Summary Admission Date: 03/26/19 Discharge Date: 04/08/19 - History Present History: Alcohol dependence, Cocaine dependence Additional Comments: Pt is a 63 y/o male with a hx of [place] admitted to rehab and scheduled for discharge on 04/08/19. Pertinent Past History: HTN BPH Contusion of Right Rib HLD Depression - Discharge Physical Exam Vital Signs: Vital Signs Temperature 97.8 F 04/07/19 07:09 Pulse Rate 63 04/07/19 10:00 Respiratory Rate 18 04/07/19 07:09 Blood Pressure 114/60 04/07/19 10:00 O2 Sat by Pulse Oximetry (%) Alert o x 3,denies s/h/i nad oob ambulating with steady gait cardiac:s1 s2,rrr lungs:cta,юлия. abdomen:+bs,soft,nt,nd extremities/skin:no edema,skin intact Pertinent Admission Physical Exam Findings: Stable and unchanged from admission - Treatment Discharge Condition: Discharge condition good Hospital Course: Rehabilitated safely CD aftercare referral accepted Pt participated in group and individual sessions - Medication Discharge Medications: Ambulatory Orders Amlodipine Besylate 5 mg PO DAILY #30 tablet 04/07/19 Atorvastatin Ca [Lipitor] 10 mg PO HS #30 tablet 04/07/19 Naltrexone HCl [Revia -] 50 mg PO HS #30 tablet 04/07/19 - Medication-Assisted Treatment (MAT) Medication-Assisted Treatment (MAT): No - Discharge Instructions Diet, activity, other medical instructions: Diet:JOSE Activity: oob ad jessica Other medical instructions:follow up with CD aftercare at [place], [place] as scheduled. Follow up with your primary care with [facility] as needed after [facility] program. - Diagnosis (1) Alcohol dependence Current Visit: Yes Status: Chronic Qualifiers: Substance use status: uncomplicated Qualified Code(s): F10.20 - Alcohol dependence, uncomplicated (2) Hypertension Current Visit: Yes Status: Chronic Qualifiers: Hypertension type: essential hypertension Qualified Code(s): I10 - Essential (primary) hypertension (3) BPH (benign prostatic hyperplasia) Current Visit: Yes Status: Chronic Qualifiers: Lower urinary tract symptom detail: unspecified (4) Hyperlipidemia Current Visit: Yes Status: Chronic Qualifiers: Hyperlipidemia type: unspecified Qualified Code(s): E78.5 - Hyperlipidemia , unspecified (5) Nicotine dependence Current Visit: Yes Status: Chronic Qualifiers: Nicotine product type: cigarettes Substance use status: uncomplicated Qualified Code(s): F17.210 - Nicotine dependence, cigarettes, uncomplicated (6) Cocaine abuse Current Visit: Yes Status: Chronic - Follow-up Referral Minutes to complete discharge: 20 - AMA Did Patient Leave Against Medical Advice: No Additional Comments: [facility]esy Rx for Lipitor,Norvasc and Revia #30 days electronically sent to [place] pharmacy for poultry picker after discharge to [facility]. Pt has been instructe to follow up with his primary care at [facility] , [address] [place] [address] for medical management after inpatient Floor Molder Care at [facility].
[2019-04-07] MEDS: THIAMINE HCL 100 MG TABLET (FP) PO SCH (21:35)
[2019-04-07] MEDS: ATORVASTATIN CA 10 MG TABLET (FP) PO SCH (21:35)
[2019-04-07] MEDS: NALTREXONE HCL 50 MG TABLET PO SCH (21:35)
[2019-04-08 07:06] VITALS: BP 108/67; PULSE 64; TEMP 97.1
[2019-04-08] MEDS: PRENATAL VITAMINS W/ FOLIC ACID TABLET (FP) PO SCH (09:46)
[2019-04-08] MEDS: amLODIPine BESYLATE 5 MG TABLET (FP) PO SCH (09:46)
[2019-04-08] MEDS: NICOTINE 21 MG/24 HOURS TOPICAL PATCH TD SCH (09:47)
--- NOTE | 2019-04-08 11:18 | PN ---
[facility] Progress Note Note: Pt was seen this morning and is discharging as scheduled. Vital Signs - 24 hr 04/08/19 04/08/19 03:30 07:05 Temperature 97.1 F L Pulse Rate 64 Respiratory 18 18 Rate Blood Pressure 108/67 Alert o x 3,well groomed,denies s/h/i nad oob with steady gait A/P Medically stable D/C pt today follow up with CD aftercare at [facility] as scheduled. Follow up with primary care thereafter at [facility], [address] [place] [address] for medical management.
== END 2019-04-08 10:05 | disposition home or self-care (01) | DRG 772 ==
LOC: YASAS 12:57 → Y5N 12:58
PROVIDERS: ADMIT Neuromusculoskeletal Medicine & OMM; ATTEND Neuromusculoskeletal Medicine & OMM
PROC: HZ42ZZZ Group Counseling for Substance Abuse Treatment, Cognitive-Behavioral (ICD-10-PCS; principal; 2019-03-26)
DX: F10.20 Alcohol dependence, uncomplicated (principal); F14.20 Cocaine dependence, uncomplicated; F17.210 Nicotine dependence, cigarettes, uncomplicated; F19.24 Other psychoactive substance dependence with psychoactive substance-induced mood disorder; F32.9 Major depressive disorder, single episode, unspecified; I10 Essential (primary) hypertension; E78.5 Hyperlipidemia, unspecified; N40.0 Benign prostatic hyperplasia without lower urinary tract symptoms

== ENCOUNTER 2023-03-16 18:42 | Inpatient (IN) | payer MEDICARE ==
[2023-03-16 19:17] VITALS: BMI 23.3
[2023-03-16] MEDS ORDERED: BENZOCAINE/MENTHOL (CHLORASEPTIC ) LOZENGE MM PRN (19:44)
[2023-03-16] MEDS ORDERED: guaiFENesin 600 MG TABLET.ER (FP) PO PRN (19:44)
[2023-03-16] MEDS ORDERED: MAGNESIUM HYDROX 2400MG/30ML ORAL SUSPENSION 30 ML CUP PO PRN (19:44)
[2023-03-16] MEDS ORDERED: MAG HYDROX/AL HYDROX/SIMETH 30 ML UNIT-DOSE CUP PO PRN (19:44)
[2023-03-16] MEDS ORDERED: NALOXONE HCL 0.4 MG/ML VIAL IM PRN (19:44)
[2023-03-16] MEDS ORDERED: BISMUTH SUBSALICYLATE 524 MG/30 ML PO PRN (19:44)
[2023-03-16] MEDS ORDERED: LOPERAMIDE HCL 2 MG CAPSULE PO PRN (19:44)
[2023-03-16] MEDS ORDERED: POLYETHYLENE GLYCOL (HEALTHYLAX) 3350 17 GM PACKET PO PRN (19:44)
[2023-03-16] MEDS ORDERED: DICYCLOMINE HCL 10 MG CAPSULE PO PRN (19:44)
[2023-03-16] MEDS ORDERED: ONDANSETRON *ODT* 4 MG TABLET SL PRN (19:44)
[2023-03-16] MEDS ORDERED: BENZONATATE 200 MG CAPSULE PO PRN (19:44)
[2023-03-16] MEDS ORDERED: NALOXONE HCL (KLOXXADO) 8 MG SPRAY NS PRN (19:44)
[2023-03-16] MEDS ORDERED: IBUPROFEN 400 MG TABLET (FP) PO PRN (19:44)
[2023-03-16] MEDS ORDERED: NICOTINE POLACRILEX 2 MG GUM BUC PRN (19:44)
[2023-03-16] MEDS ORDERED: IBUPROFEN 600 MG TABLET (FP) PO PRN (19:44)
[2023-03-16] MEDS ORDERED: ACETAMINOPHEN 325 MG TABLET (FP) PO PRN (19:44)
[2023-03-16] MEDS: MELATONIN 5 MG TABLETS PO SCH (22:31)
[2023-03-16] MEDS: THIAMINE HCL 100 MG TABLET (FP) PO SCH (22:31)
[2023-03-17] MEDS: PRENATAL VITAMINS W/ FOLIC ACID TABLET (FP) PO SCH (09:28)
[2023-03-17] MEDS: NICOTINE 14 MG/24 HOURS TOPICAL PATCH TD SCH (09:28)
[2023-03-17 11:07] LABS: HEMATOCRIT 37.9 % (35.4-49); HEMOGLOBIN 12.8 GM/dL (11.7-16.9); MCH 30.7 pg (25.7-33.7); MCHC 33.7 g/dl (32.0-35.9); MEAN CELL VOLUME 91.1 fl (80-96); MEAN PLT VOLUME 8.4 fl (7.5-11.1); PLATELET COUNT 264 10^3/uL (134-434); RBC 4.16 M/mm3 (4.00-5.60); RDW 13.6 % (11.9-15.9); WHITE BLOOD COUNT 6.4 K/mm3 (4.0-10.0)
[2023-03-17 11:18] LABS: CHLORIDE 112 mmol/L (98-107); POTASSIUM 3.8 mmol/L (3.5-5.1); SODIUM 146 mmol/L (136-145)
[2023-03-17 11:22] LABS: ALBUMIN 2.7 g/dl (3.4-5.0); ANION GAP 7 mmol/L (4-13); CALCIUM 8.1 mg/dL (8.5-10.1); CO2 27 mmol/L (21-32); GLUCOSE,RANDOM 95 mg/dL (74-106)
[2023-03-17 11:23] LABS: BLOOD UREA NITROGEN 15.8 mg/dL (7-18)
[2023-03-17 11:25] LABS: CREATININE 0.8 mg/dL (0.55-1.3); SGOT/AST 15 U/L (15-37)
[2023-03-17 11:26] LABS: SGPT/ALT 13 U/L (13-61)
[2023-03-17 11:27] LABS: BILIRUBIN,TOTAL 0.2 mg/dL (0.2-1)
[2023-03-17 11:28] LABS: ALK PHOS 89 U/L (45-117)
[2023-03-17] MEDS ORDERED: LORazepam 1 MG TABLET PO PRN (12:21)
[2023-03-17] MEDS: amLODIPine BESYLATE 10 MG TABLET (FP) PO SCH (12:54)
[2023-03-17] MEDS ORDERED: LISINOPRIL 10 MG TABLET PO SCH (15:00)
[2023-03-17] MEDS: LORazepam 2 MG TABLET PO SCH ×2 (17:29→22:40)
[2023-03-17] MEDS: THIAMINE HCL 100 MG TABLET (FP) PO SCH (22:40)
[2023-03-17] MEDS: MELATONIN 5 MG TABLETS PO SCH (22:40)
[2023-03-18] MEDS: LORazepam 1 MG TABLET PO SCH ×4 (05:22→22:09)
[2023-03-18] MEDS: PRENATAL VITAMINS W/ FOLIC ACID TABLET (FP) PO SCH (10:43)
[2023-03-18] MEDS: NICOTINE 14 MG/24 HOURS TOPICAL PATCH TD SCH (10:43)
[2023-03-18] MEDS: amLODIPine BESYLATE 10 MG TABLET (FP) PO SCH (10:43)
[2023-03-18] MEDS ORDERED: LISINOPRIL 5 MG TABLET PO ONE (12:06)
[2023-03-18] MEDS: hydrOXYzine PAMOATE 25 MG CAPSULE (FP) PO PRN (17:32)
[2023-03-18] MEDS: THIAMINE HCL 100 MG TABLET (FP) PO SCH (22:07)
[2023-03-18] MEDS: MELATONIN 5 MG TABLETS PO SCH (22:07)
[2023-03-19] MEDS ORDERED: LORazepam 0.5 MG TABLET PO PRN
[2023-03-19] MEDS: LORazepam 0.5 MG TABLET PO SCH ×4 (05:44→22:22)
[2023-03-19] MEDS: hydrOXYzine PAMOATE 25 MG CAPSULE (FP) PO PRN (05:45)
[2023-03-19 08:59] LABS: CHOLESTEROL 201 mg/dL (50-200); HDL CHOLESTEROL 47 mg/dL (40-60)
[2023-03-19 09:01] LABS: LDL CHOLESTEROL (ONLY SJRH) 125 mg/dL (5-100)
[2023-03-19] MEDS: LISINOPRIL 5 MG TABLET PO SCH (10:54)
[2023-03-19] MEDS: PRENATAL VITAMINS W/ FOLIC ACID TABLET (FP) PO SCH (10:54)
[2023-03-19] MEDS: amLODIPine BESYLATE 10 MG TABLET (FP) PO SCH (10:54)
[2023-03-19] MEDS: NICOTINE 14 MG/24 HOURS TOPICAL PATCH TD SCH (10:55)
[2023-03-19] MEDS: THIAMINE HCL 100 MG TABLET (FP) PO SCH (21:52)
[2023-03-19] MEDS: MELATONIN 5 MG TABLETS PO SCH (21:52)
[2023-03-19] MEDS ORDERED: ATORVASTATIN CA 10 MG TABLET (FP) PO SCH (22:00)
[2023-03-20] MEDS ORDERED: LORazepam 0.5 MG TABLET PO ONE (05:00)
[2023-03-20] MEDS: PRENATAL VITAMINS W/ FOLIC ACID TABLET (FP) PO SCH (10:47)
[2023-03-20] MEDS: LISINOPRIL 5 MG TABLET PO SCH (10:48)
[2023-03-20] MEDS: amLODIPine BESYLATE 10 MG TABLET (FP) PO SCH (10:48)
[2023-03-20] MEDS: NICOTINE 14 MG/24 HOURS TOPICAL PATCH TD SCH (10:49)
[2023-03-20 13:25] VITALS: BP 163/72; PULSE 83; RESP 18; TEMP 97.5
== END 2023-03-20 14:09 | disposition home or self-care (01) | DRG 896 ==
LOC: YASAS 18:42 → Y6N 20:24
PROVIDERS: ADMIT Allergy & Immunology; ATTEND Surgery
PROC: HZ2ZZZZ Detoxification Services for Substance Abuse Treatment (ICD-10-PCS; principal; 2023-03-16)
DX: F10.230 Alcohol dependence with withdrawal, uncomplicated (principal); U07.1 COVID-19; F14.20 Cocaine dependence, uncomplicated; F12.20 Cannabis dependence, uncomplicated; F17.210 Nicotine dependence, cigarettes, uncomplicated; E78.5 Hyperlipidemia, unspecified; I10 Essential (primary) hypertension
CPT/HCPCS: 36415; 80053; 80061; 80307; 85027; 86593; 86780; 87635; 93005; 93010

== ENCOUNTER 2023-03-31 14:47 | Inpatient (IN) | payer MEDICARE ==
[2023-03-31 15:15] VITALS: BMI 25.4
[2023-03-31] MEDS ORDERED: POLYETHYLENE GLYCOL (HEALTHYLAX) 3350 17 GM PACKET PO PRN (16:16)
[2023-03-31] MEDS ORDERED: BENZOCAINE/MENTHOL (CHLORASEPTIC ) LOZENGE MM PRN (16:16)
[2023-03-31] MEDS ORDERED: BENZONATATE 200 MG CAPSULE PO PRN (16:16)
[2023-03-31] MEDS ORDERED: IBUPROFEN 600 MG TABLET (FP) PO PRN (16:16)
[2023-03-31] MEDS ORDERED: LOPERAMIDE HCL 2 MG CAPSULE PO PRN (16:16)
[2023-03-31] MEDS ORDERED: guaiFENesin 600 MG TABLET.ER (FP) PO PRN (16:16)
[2023-03-31] MEDS ORDERED: ONDANSETRON *ODT* 4 MG TABLET SL PRN (16:16)
[2023-03-31] MEDS ORDERED: MAG HYDROX/AL HYDROX/SIMETH 30 ML UNIT-DOSE CUP PO PRN (16:16)
[2023-03-31] MEDS ORDERED: NALOXONE HCL 0.4 MG/ML VIAL IM PRN (16:16)
[2023-03-31] MEDS ORDERED: NALOXONE HCL (KLOXXADO) 8 MG SPRAY NS PRN (16:16)
[2023-03-31] MEDS ORDERED: MAGNESIUM HYDROX 2400MG/30ML ORAL SUSPENSION 30 ML CUP PO PRN (16:16)
[2023-03-31] MEDS ORDERED: IBUPROFEN 400 MG TABLET (FP) PO PRN (16:16)
[2023-03-31] MEDS ORDERED: DICYCLOMINE HCL 10 MG CAPSULE PO PRN (16:16)
[2023-03-31] MEDS ORDERED: ACETAMINOPHEN 325 MG TABLET (FP) PO PRN (16:16)
[2023-03-31] MEDS ORDERED: BISMUTH SUBSALICYLATE 524 MG/30 ML PO PRN (16:16)
[2023-03-31] MEDS: NICOTINE 14 MG/24 HOURS TOPICAL PATCH TD SCH (17:30)
[2023-03-31] MEDS: PRENATAL VITAMINS W/ FOLIC ACID TABLET (FP) PO SCH (17:30)
[2023-03-31] MEDS: MELATONIN 5 MG TABLETS PO SCH (22:21)
[2023-03-31] MEDS: THIAMINE HCL 100 MG TABLET (FP) PO SCH (22:21)
[2023-03-31] MEDS: hydrOXYzine PAMOATE 25 MG CAPSULE (FP) PO PRN (22:22)
[2023-03-31] MEDS: METHOCARBAMOL 500 MG TABLET PO PRN (22:22)
[2023-03-31] MEDS: ATORVASTATIN CA 10 MG TABLET (FP) PO SCH (22:22)
[2023-03-31] MEDS: NALTREXONE HCL 50 MG TABLET PO SCH (22:58)
[2023-04-01] MEDS ORDERED: diazePAM 5 MG TABLET PO PRN (10:25)
[2023-04-01] MEDS: amLODIPine BESYLATE 5 MG TABLET (FP) PO SCH (10:54)
[2023-04-01] MEDS: METHOCARBAMOL 500 MG TABLET PO PRN (10:55)
[2023-04-01] MEDS: PRENATAL VITAMINS W/ FOLIC ACID TABLET (FP) PO SCH (10:55)
[2023-04-01] MEDS: hydrOXYzine PAMOATE 25 MG CAPSULE (FP) PO PRN ×2 (10:55→22:14)
[2023-04-01] MEDS: NICOTINE 14 MG/24 HOURS TOPICAL PATCH TD SCH (10:55)
[2023-04-01] MEDS: diazePAM 5 MG TABLET PO SCH ×3 (11:17→22:15)
[2023-04-01 11:38] LABS: CHLORIDE 113 mmol/L (98-107); POTASSIUM 4.2 mmol/L (3.5-5.1); SODIUM 145 mmol/L (136-145)
[2023-04-01 11:41] LABS: CALCIUM 8.3 mg/dL (8.5-10.1)
[2023-04-01 11:42] LABS: ANION GAP 4 mmol/L (4-13); BLOOD UREA NITROGEN 10.3 mg/dL (7-18); CO2 29 mmol/L (21-32); GLUCOSE,RANDOM 84 mg/dL (74-106)
[2023-04-01 11:45] LABS: CREATININE 0.7 mg/dL (0.55-1.3); SGOT/AST 11 U/L (15-37); SGPT/ALT 14 U/L (13-61)
[2023-04-01 11:48] LABS: BILIRUBIN,TOTAL 0.4 mg/dL (0.2-1); TOT PROT 6.5 g/dl (6.4-8.2)
[2023-04-01 11:49] LABS: ALK PHOS 92 U/L (45-117)
[2023-04-01 12:16] LABS: HEMATOCRIT 39.8 % (35.4-49); HEMOGLOBIN 13.6 GM/dL (11.7-16.9); MCH 31.4 pg (25.7-33.7); MCHC 34.1 g/dl (32.0-35.9); MEAN CELL VOLUME 92.3 fl (80-96); MEAN PLT VOLUME 8.5 fl (7.5-11.1); PLATELET COUNT 259 10^3/uL (134-434); RBC 4.31 M/mm3 (4.00-5.60); RDW 13.5 % (11.9-15.9); WHITE BLOOD COUNT 5.9 K/mm3 (4.0-10.0)
[2023-04-01] MEDS ORDERED: cloNIDine HCL 0.1 MG TABLET PO PRN (14:46)
[2023-04-01] MEDS: THIAMINE HCL 100 MG TABLET (FP) PO SCH (22:14)
[2023-04-01] MEDS: NALTREXONE HCL 50 MG TABLET PO SCH (22:14)
[2023-04-01] MEDS: MELATONIN 5 MG TABLETS PO SCH (22:14)
[2023-04-01] MEDS: ATORVASTATIN CA 10 MG TABLET (FP) PO SCH (22:14)
[2023-04-02] MEDS: diazePAM 5 MG TABLET PO SCH ×4 (05:39→22:33)
[2023-04-02] MEDS: amLODIPine BESYLATE 5 MG TABLET (FP) PO SCH (10:29)
[2023-04-02] MEDS: NICOTINE 14 MG/24 HOURS TOPICAL PATCH TD SCH (10:30)
[2023-04-02] MEDS: PRENATAL VITAMINS W/ FOLIC ACID TABLET (FP) PO SCH (10:30)
[2023-04-02] MEDS: ATORVASTATIN CA 10 MG TABLET (FP) PO SCH (22:33)
[2023-04-02] MEDS: THIAMINE HCL 100 MG TABLET (FP) PO SCH (22:33)
[2023-04-02] MEDS: MELATONIN 5 MG TABLETS PO SCH (22:34)
[2023-04-02] MEDS: NALTREXONE HCL 50 MG TABLET PO SCH (22:46)
[2023-04-03] MEDS: diazePAM 5 MG TABLET PO SCH ×3 (05:40→22:14)
[2023-04-03] MEDS: NICOTINE 14 MG/24 HOURS TOPICAL PATCH TD SCH (10:25)
[2023-04-03] MEDS: amLODIPine BESYLATE 5 MG TABLET (FP) PO SCH (10:25)
[2023-04-03] MEDS: PRENATAL VITAMINS W/ FOLIC ACID TABLET (FP) PO SCH (10:25)
[2023-04-03] MEDS: THIAMINE HCL 100 MG TABLET (FP) PO SCH (22:14)
[2023-04-03] MEDS: ATORVASTATIN CA 10 MG TABLET (FP) PO SCH (22:14)
[2023-04-03] MEDS: NALTREXONE HCL 50 MG TABLET PO SCH (22:14)
[2023-04-03] MEDS: MELATONIN 5 MG TABLETS PO SCH (22:15)
[2023-04-04] MEDS: diazePAM 5 MG TABLET PO SCH ×2 (06:09→17:39)
[2023-04-04] MEDS: amLODIPine BESYLATE 5 MG TABLET (FP) PO SCH (10:19)
[2023-04-04] MEDS: PRENATAL VITAMINS W/ FOLIC ACID TABLET (FP) PO SCH (10:19)
[2023-04-04] MEDS: NICOTINE 14 MG/24 HOURS TOPICAL PATCH TD SCH (10:20)
[2023-04-04] MEDS: ATORVASTATIN CA 10 MG TABLET (FP) PO SCH (22:21)
[2023-04-04] MEDS: MELATONIN 5 MG TABLETS PO SCH (22:21)
[2023-04-04] MEDS: THIAMINE HCL 100 MG TABLET (FP) PO SCH (22:21)
[2023-04-04] MEDS: NALTREXONE HCL 50 MG TABLET PO SCH (22:21)
[2023-04-05] MEDS ORDERED: diazePAM 5 MG TABLET PO ONE (06:00)
[2023-04-05 10:02] VITALS: BP 154/88; PULSE 72; RESP 18; TEMP 98.4
[2023-04-05] MEDS: NICOTINE 14 MG/24 HOURS TOPICAL PATCH TD SCH (10:16)
[2023-04-05] MEDS: PRENATAL VITAMINS W/ FOLIC ACID TABLET (FP) PO SCH (10:16)
[2023-04-05] MEDS: amLODIPine BESYLATE 5 MG TABLET (FP) PO SCH (10:16)
== END 2023-04-05 12:16 | disposition home or self-care (01) | DRG 897 ==
LOC: YASAS 14:47 → Y6N 18:55
PROVIDERS: ADMIT Allergy & Immunology; ATTEND Surgery
PROC: HZ2ZZZZ Detoxification Services for Substance Abuse Treatment (ICD-10-PCS; principal; 2023-03-31)
DX: F10.230 Alcohol dependence with withdrawal, uncomplicated (principal); F14.20 Cocaine dependence, uncomplicated; F17.210 Nicotine dependence, cigarettes, uncomplicated; F19.24 Other psychoactive substance dependence with psychoactive substance-induced mood disorder; E78.5 Hyperlipidemia, unspecified; I10 Essential (primary) hypertension; N40.0 Benign prostatic hyperplasia without lower urinary tract symptoms; R76.8 Other specified abnormal immunological findings in serum; A52.8 Late syphilis, latent
CPT/HCPCS: 36415; 80053; 80307; 82140; 85027; 86593; 86780; 87635; 93005; 93010

== ENCOUNTER 2024-01-21 10:05 | Inpatient (IN) | payer OTHER ==
[2024-01-21 10:57] VITALS: BMI 26.1
[2024-01-21] MEDS ORDERED: DICYCLOMINE HCL 10 MG CAPSULE PO PRN (12:07)
[2024-01-21] MEDS ORDERED: ONDANSETRON *ODT* 4 MG TABLET SL PRN (12:07)
[2024-01-21] MEDS ORDERED: MAGNESIUM HYDROX 2400MG/30ML ORAL SUSPENSION 30 ML CUP PO PRN (12:07)
[2024-01-21] MEDS ORDERED: IBUPROFEN 400 MG TABLET (FP) PO PRN (12:07)
[2024-01-21] MEDS ORDERED: BENZONATATE 200 MG CAPSULE PO PRN (12:07)
[2024-01-21] MEDS ORDERED: guaiFENesin 600 MG TABLET.ER (FP) PO PRN (12:07)
[2024-01-21] MEDS ORDERED: diazePAM 5 MG TABLET PO PRN (12:07)
[2024-01-21] MEDS ORDERED: ACETAMINOPHEN 325 MG TABLET (FP) PO PRN (12:07)
[2024-01-21] MEDS ORDERED: IBUPROFEN 600 MG TABLET (FP) PO PRN (12:07)
[2024-01-21] MEDS ORDERED: MAG HYDROX/AL HYDROX/SIMETH 30 ML UNIT-DOSE CUP PO PRN (12:07)
[2024-01-21] MEDS ORDERED: LOPERAMIDE HCL 2 MG CAPSULE PO PRN (12:07)
[2024-01-21] MEDS ORDERED: NALOXONE (NARCAN) HCL 4 MG/0.1 ML SPRAY NS PRN (12:07)
[2024-01-21] MEDS ORDERED: BISMUTH SUBSALICYLATE 262 MG/15 ML BTL PO PRN (12:07)
[2024-01-21] MEDS ORDERED: POLYETHYLENE GLYCOL (HEALTHYLAX) 3350 17 GM PACKET PO PRN (12:07)
[2024-01-21] MEDS ORDERED: BENZOCAINE/MENTHOL (CHLORASEPTIC ) LOZENGE MM PRN (12:07)
[2024-01-21] MEDS ORDERED: PRENATAL VITAMINS W/ FOLIC ACID TABLET (FP) PO ONE (12:41)
[2024-01-21] MEDS ORDERED: NICOTINE 7 MG/24 HOURS TOPICAL PATCH TD ONE (12:41)
[2024-01-21] MEDS: PRENATAL VITAMINS W/ FOLIC ACID TABLET (FP) PO SCH (12:49)
[2024-01-21] MEDS: NICOTINE 7 MG/24 HOURS TOPICAL PATCH TD SCH (12:50)
[2024-01-21] MEDS: NALTREXONE HCL 50 MG TABLET PO SCH (14:09)
[2024-01-21] MEDS: diazePAM 5 MG TABLET PO SCH (17:21)
[2024-01-21] MEDS: ATORVASTATIN CA 10 MG TABLET (FP) PO SCH (23:35)
[2024-01-22] MEDS: THIAMINE 100 MG TABLET PO SCH (00:54)
[2024-01-22] MEDS: MELATONIN 5 MG TABLETS PO SCH (00:58)
[2024-01-22] MEDS: amLODIPine BESYLATE 5 MG TABLET (FP) PO SCH (10:21)
[2024-01-22 11:53] LABS: POTASSIUM 3.8 mmol/L (3.5-5.1)
[2024-01-22 11:54] LABS: CALCIUM 8.8 mg/dL (8.5-10.1)
[2024-01-22 11:55] LABS: ALBUMIN 3.2 g/dl (3.4-5.0); BLOOD UREA NITROGEN 14.2 mg/dL (7-18)
[2024-01-22 11:57] LABS: HEMATOCRIT 41.7 % (35.4-49); HEMOGLOBIN 14.7 GM/dL (11.7-16.9); MCHC 35.2 g/dl (32.0-35.9); MEAN CELL VOLUME 90.8 fl (80-96); MEAN PLT VOLUME 8.8 fl (7.5-11.1); PLATELET COUNT 234 10^3/uL (134-434); RBC 4.59 M/mm3 (4.00-5.60); RDW 13.3 % (11.9-15.9); WHITE BLOOD COUNT 5.4 K/mm3 (4.0-10.0)
[2024-01-22 12:00] LABS: BILIRUBIN,TOTAL 0.3 mg/dL (0.2-1); TOT PROT 6.5 g/dl (6.4-8.2)
[2024-01-22 12:02] LABS: CREATININE 0.8 mg/dL (0.55-1.3)
[2024-01-22] MEDS: hydrOXYzine PAMOATE 25 MG CAPSULE (FP) PO PRN (17:31)
[2024-01-22] MEDS: METHOCARBAMOL 500 MG TABLET PO PRN (17:31)
[2024-01-23] MEDS: diazePAM 5 MG TABLET PO SCH (05:52)
[2024-01-24] MEDS: diazePAM 5 MG TABLET PO SCH (06:33)
[2024-01-24] MEDS: amLODIPine BESYLATE 10 MG TABLET (FP) PO SCH (09:40)
[2024-01-24 21:11] VITALS: RESP 16
[2024-01-25] MEDS: diazePAM 5 MG TABLET PO ONE (06:20)
[2024-01-25 09:05] VITALS: TEMP 97.8
[2024-01-25 13:05] VITALS: BP 138/66; PULSE 60
[2024-01-25] MEDS: NALOXONE (NYS OPIOID OVERDOSE PROGRAM) 4 MG/0.1 ML SPRAY NS PRN (13:47)
== END 2024-01-25 13:53 | disposition other institution (70) | DRG 897 ==
LOC: YASAS 10:05 → Y6N 12:26
PROVIDERS: ADMIT Allergy & Immunology; ATTEND Surgery
PROC: HZ2ZZZZ Detoxification Services for Substance Abuse Treatment (ICD-10-PCS; principal; 2024-01-21)
DX: F10.230 Alcohol dependence with withdrawal, uncomplicated (principal); F14.20 Cocaine dependence, uncomplicated; F17.210 Nicotine dependence, cigarettes, uncomplicated; F19.24 Other psychoactive substance dependence with psychoactive substance-induced mood disorder; E78.2 Mixed hyperlipidemia; F32.A Depression, unspecified; I10 Essential (primary) hypertension; N40.0 Benign prostatic hyperplasia without lower urinary tract symptoms; R73.9 Hyperglycemia, unspecified; R76.8 Other specified abnormal immunological findings in serum
CPT/HCPCS: 36415; 80053; 80305; 80307; 85027; 86593; 86780; 87811; 93005; 93010

== ENCOUNTER 2024-01-25 14:00 | Inpatient (IN) | payer OTHER ==
[2024-01-25] MEDS ORDERED: guaiFENesin 600 MG TABLET.ER (FP) PO PRN (15:44)
[2024-01-25] MEDS ORDERED: NICOTINE POLACRILEX 2 MG GUM BUC PRN (15:44)
[2024-01-25] MEDS ORDERED: IBUPROFEN 400 MG TABLET (FP) PO PRN (15:44)
[2024-01-25] MEDS ORDERED: BENZONATATE 200 MG CAPSULE PO PRN (15:44)
[2024-01-25] MEDS ORDERED: ACETAMINOPHEN 325 MG TABLET (FP) PO PRN (15:44)
[2024-01-25] MEDS ORDERED: MAGNESIUM HYDROX 2400MG/30ML ORAL SUSPENSION 30 ML CUP PO PRN (15:44)
[2024-01-25] MEDS ORDERED: BENZOCAINE/MENTHOL (CHLORASEPTIC ) LOZENGE MM PRN (15:44)
[2024-01-25] MEDS ORDERED: POLYETHYLENE GLYCOL (HEALTHYLAX) 3350 17 GM PACKET PO PRN (15:44)
[2024-01-25] MEDS ORDERED: MAG HYDROX/AL HYDROX/SIMETH 30 ML UNIT-DOSE CUP PO PRN (15:44)
[2024-01-25] MEDS ORDERED: IBUPROFEN 600 MG TABLET (FP) PO PRN (15:44)
[2024-01-25] MEDS ORDERED: LOPERAMIDE HCL 2 MG CAPSULE PO PRN (15:44)
[2024-01-25] MEDS ORDERED: NICOTINE POLACRILEX 2 MG LOZENGE BC PRN (15:44)
[2024-01-25] MEDS: hydrOXYzine PAMOATE 25 MG CAPSULE (FP) PO PRN (21:11)
[2024-01-25] MEDS: MELATONIN 5 MG TABLETS PO SCH (21:12)
[2024-01-25] MEDS: ATORVASTATIN CA 10 MG TABLET (FP) PO SCH (21:12)
[2024-01-25] MEDS: THIAMINE 100 MG TABLET PO SCH (21:12)
[2024-01-26 06:15] VITALS: RESP 16; TEMP 97.9
[2024-01-26 09:02] VITALS: BP 157/91; PULSE 78
[2024-01-26] MEDS: PRENATAL VITAMINS W/ FOLIC ACID TABLET (FP) PO SCH (09:53)
[2024-01-26] MEDS: NICOTINE 7 MG/24 HOURS TOPICAL PATCH TD SCH (09:53)
[2024-01-26] MEDS: amLODIPine BESYLATE 10 MG TABLET (FP) PO SCH (09:55)
[2024-01-26] MEDS: NALTREXONE HCL 50 MG TABLET PO SCH ×2 (09:55→11:32)
[2024-01-26] MEDS: NALOXONE (NYS OPIOID OVERDOSE PROGRAM) 4 MG/0.1 ML SPRAY NS SCH (14:50)
== END 2024-01-26 14:55 | disposition home or self-care (01) | DRG 895 ==
LOC: YASAS 14:00 → Y5N 14:05
PROVIDERS: ADMIT Psychiatry & Neurology Pain Medicine; ATTEND Psychiatry & Neurology Pain Medicine
PROC: HZ42ZZZ Group Counseling for Substance Abuse Treatment, Cognitive-Behavioral (ICD-10-PCS; principal; 2024-01-26)
DX: F10.20 Alcohol dependence, uncomplicated (principal); F14.20 Cocaine dependence, uncomplicated; Z59.01 Sheltered homelessness; F17.210 Nicotine dependence, cigarettes, uncomplicated; F32.A Depression, unspecified; E78.2 Mixed hyperlipidemia; I10 Essential (primary) hypertension; N40.0 Benign prostatic hyperplasia without lower urinary tract symptoms